=== PATIENT | male | born 1970 | race Caucasian/White ===

== ENCOUNTER 2020-04-10 10:54 | Outpatient (REF) | payer OTHER, SELFPAY | END 2020-04-10 10:55 | disposition home or self-care (01) | LOC: HO.LAB 10:54 | PROVIDERS: Visit Provider Internal Medicine | DX: Z20.828 Contact with and (suspected) exposure to other viral communicable diseases (principal) | CPT/HCPCS: 36415; C9803; U0003 ==

== ENCOUNTER 2020-09-14 17:59 | Emergency (ER) | payer OTHER, SELFPAY ==
[2020-09-14 18:19] VITALS: BP 119/71; PULSE 78; RESP 20; TEMP 37.1; O2SAT 97; BMI 27.2
--- NOTE | 2020-09-14 20:09 | ED.PSYCH ---
HPI - Psych General Chief Complaint: Psychiatric Symptoms Stated Complaint: Crisis Time Seen by Provider: 09/14/20 22:03 Source: patient Mode of arrival: ambulatory Limitations: no limitations History of Present Illness HPI Narrative: Cindy presents to the ED for abdominal pain for SI ideation. Patient states he was recently discharged from detox program and relaspe. Patient states he is suicidal and will hang himself Related Data Home Medications Medication Instructions Recorded Confirmed amlodipine 1 tab PO DAILY 09/14/20 09/14/20 aripiprazole 1 tab PO DAILY 09/14/20 09/14/20 buspirone 1 tab PO BID 09/14/20 09/14/20 chlorthalidone 1 tab PO DAILY 09/14/20 09/14/20 clonidine HCl 1 tab PO BEDTIME PRN 09/14/20 09/14/20 clonidine HCl 1 tab PO BID PRN 09/14/20 09/14/20 dulaglutide [Trulicity] 0.5 ml SUBCUT QWEEK 09/14/20 09/14/20 Allergies Allergy/AdvReac Type Severity Reaction Status Date / Time No Known Allergies Allergy Verified 09/14/20 19:55 Review of Systems Review of Systems: Yes all other systems are reviewed and are negative Constitutional: Constitutional: Reports as per HPI and Reports no additional constitutional complaints Eyes: Eyes: Reports as per HPI and Reports no additional eye complaints ENT: Reports system reviewed and no additional complaints, except as documented and Reports as per HPI Cardiovascular: Cardiovascular: Reports as per HPI and Reports no additional cardiovascular complaints Respiratory: Respiratory: Reports as per HPI and Reports no additional respiratory complaints Gastrointestinal: Gastrointestinal: Reports as per HPI and Reports no additional gastrointestinal complaints Genitourinary: Genitourinary: Reports no additional male genitourinary complaints and Reports as per HPI Musculoskeletal: Musculoskeletal: Reports no additional musculoskeletal complaints and Reports as per HPI Psychiatric: Psychiatric: Reports no additional psychiatric complaints, Reports as per HPI and Reports suicidal ideation [facility] Social History Social History Alcohol intake: never Patient Tobacco Use Status: Current someday Tobacco user Smoked in Last 30 Days: Yes Use of substances other than those prescribed or required for medical reasons: Unknown Substance Use Frequency 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, PATIENT NOT FORTH COMING AT THIS TIME Advance Directives: No Advance Directives Information Provided: Yes Healthcare Proxy: No Guardian: No Physical Exam Vital Signs: Vital Signs: Last Vital Signs Temp 98.0 F 09/14/20 21:55 Pulse 72 09/14/20 21:55 Resp 16 09/15/20 00:00 BP 141/80 H 09/14/20 21:55 Pulse Ox 97 09/14/20 21:55 Body Mass Index 27.2 Const: General: cooperative, healthy appearing, comfortable, no acute distress, well developed, alert and awake Orientation/consciousness: patient oriented x3 HENMT: Head: Yes normal to inspection, Yes No palpable skull fracture present, Yes normocephalic and Yes atraumatic Eyes: General: appearance normal, both eyes and all related structures Neck: Neck: Yes normal visual inspection, Yes full ROM, Yes no lymphadenopathy, Yes no meningeal signs, Yes trachea midline, Yes supple and No tender Chest: Chest palpation & inspection: normal inspection of the chest and normal palpation of entire chest wall Resp: Effort & Inspection: normal respiratory effort and able to speak in complete sentences Cardio: Jugular venous distension: no JVD Heart sounds: S1 normal heart sound present and S2 normal heart sound present GI: Inspection: Yes normal to inspection and No abdominal wall ecchymosis Palpation (GI): Soft to palpation, not firm, nontender, no guarding and not rigid : General: No CVA tenderness and Yes no CVA tenderness Back/Spine/Pelvis: Back: no CVA tenderness, No CVA tenderness and No back tenderness Skin: General skin exam: no rashes or lesions noted and elasticity normal Neuro: General: patient oriented x3, gait normal, no meningeal signs and CN's II-XI intact bilaterally Cranial nerves: Yes CN's II-XII intact bilaterally Extrem: General: Yes normal to inspection and Yes full ROM Psych: Appearance: grossly normal, well kempt and not disheveled Course Course Course Narrative: Patient will have medical evaluation in and be evaluated by I and crisis. Reevaluation(s) Reevaluation #1: CARLOS resolved. Patient seen by care team consulted Kalie who recommend Section 12 inpatient bed search. Time: 01:31 MDM - Psych MDM Narrative Medical decision making narrative: Depression. Lab Data Result diagrams: 09/14/20 20:23 09/15/20 00:21 Labs: Lab Results 09/14/20 09/14/20 09/14/20 Range/Units 19:25 20:23 20:23 WBC 5.9 (4.8-10.8) X10*3/uL RBC 4.14 L (4.60-5.80) X10*6/uL Hgb 12.6 L (14.0-18.0) g/dl Hct 37.1 L (42-52) % MCV 89.6 (80-98) fL MCH 30.4 (27.0-33.0) pg MCHC 34.0 (31.0-36.0) g/dl RDW 11.7 (11.0-16.0) % Plt Count 132 L (160-400) X10*3/uL MPV 10.7 (9.4-12.4) fL Immature Gran % (Auto) 0.2 (0.0-0.4) % Neut % (Auto) 64.5 (45-73) % Lymph % (Auto) 20.5 (20-40) % [place] % (Auto) 12.8 H (2-11) % Eos % (Auto) 1.7 (0-4) % Baso % (Auto) 0.3 (0-2) % Lymph # (Auto) 1.2 (1.2-4.9) X10*3/uL [place] # (Auto) 0.8 (0.1-1.2) X10*3/uL Eos # (Auto) 0.1 (0.0-0.4) X10*3/uL Baso # (Auto) 0.0 (0.0-0.2) X10*3/uL Abs Immat Gran (auto) 0.01 (0.00-0.03) X10*3/uL Absolute Neuts (auto) 3.8 (2.0-8.3) X10*3/uL Absolute Nucleated RBC 0.000 (0.0-0.012) X10*3/uL Nucleated RBC % (auto) 0.0 (0.0-0.2) /100WBC Smear Tech's Comments VERIFIED Sodium 138 (135-145) mmol/L Potassium 3.5 (3.3-5.1) mmol/L Chloride 95 L (96-108) mmol/L Carbon Dioxide 34 H (22-29) mmol/L Anion Gap 13 (12-20) BUN 20 H (9-16) mg/dL Creatinine 1.51 H (0.5-1.4) mg/dL Estim Creat Clear Calc 54.1 Estimated GFR 49 Random Glucose 133 H (60-115) mg/dL Calcium 8.6 (8.4-10.2) mg/dL Total Bilirubin 0.4 (0.0-1.0) mg/dL Direct Bilirubin 0.2 (0.0-0.5) mg/dL AST 30 (5-37) U/L ALT 32 (0-40) U/L Alkaline Phosphatase 66 (39-117) U/L Total Protein 6.4 L (6.5-8.0) g/dL Albumin 3.7 (3.5-5.0) g/dL Urine Opiates Screen POSITIVE H (Not Detect) Ur Barbiturates Screen Not Detected (Not Detect) Ur Phencyclidine Scrn Not Detected (Not Detect) Ur Amphetamines Screen Not Detected (Not Detect) U Benzodiazepines Scrn Not Detected (Not Detect) Urine Cocaine Screen POSITIVE H (Not Detect) U Marijuana (THC) Screen POSITIVE H (Not Detect) Ethyl Alcohol mg/dL 09/14/20 09/15/20 Range/Units 20:23 00:21 WBC (4.8-10.8) X10*3/uL RBC (4.60-5.80) X10*6/uL Hgb (14.0-18.0) g/dl Hct (42-52) % MCV (80-98) fL MCH (27.0-33.0) pg MCHC (31.0-36.0) g/dl RDW (11.0-16.0) % Plt Count (160-400) X10*3/uL MPV (9.4-12.4) fL Immature Gran % (Auto) (0.0-0.4) % Neut % (Auto) (45-73) % Lymph % (Auto) (20-40) % [place] % (Auto) (2-11) % Eos % (Auto) (0-4) % Baso % (Auto) (0-2) % Lymph # (Auto) (1.2-4.9) X10*3/uL [place] # (Auto) (0.1-1.2) X10*3/uL Eos # (Auto) (0.0-0.4) X10*3/uL Baso # (Auto) (0.0-0.2) X10*3/uL Abs Immat Gran (auto) (0.00-0.03) X10*3/uL Absolute Neuts (auto) (2.0-8.3) X10*3/uL Absolute Nucleated RBC (0.0-0.012) X10*3/uL Nucleated RBC % (auto) (0.0-0.2) /100WBC Smear Tech's Comments Sodium 139 (135-145) mmol/L Potassium 3.5 (3.3-5.1) mmol/L Chloride 100 (96-108) mmol/L Carbon Dioxide 29 (22-29) mmol/L Anion Gap 14 (12-20) BUN 20 H (9-16) mg/dL Creatinine 1.40 (0.5-1.4) mg/dL Estim Creat Clear Calc 58.3 Estimated GFR 53 Random Glucose 148 H (60-115) mg/dL Calcium 8.3 L (8.4-10.2) mg/dL Total Bilirubin 0.4 (0.0-1.0) mg/dL Direct Bilirubin (0.0-0.5) mg/dL AST 32 (5-37) U/L ALT 33 (0-40) U/L Alkaline Phosphatase 72 (39-117) U/L Total Protein 6.8 (6.5-8.0) g/dL Albumin 3.9 (3.5-5.0) g/dL Urine Opiates Screen (Not Detect) Ur Barbiturates Screen (Not Detect) Ur Phencyclidine Scrn (Not Detect) Ur Amphetamines Screen (Not Detect) U Benzodiazepines Scrn (Not Detect) Urine Cocaine Screen (Not Detect) U Marijuana (THC) Screen (Not Detect) Ethyl Alcohol < 10 mg/dL Discharge Plan Discharge Clinical Impression: Depression Prescriptions: No Action clonidine HCl 0.1 mg tablet 1 tab PO BID PRN (Reason: Anxiety) RF: 0 clonidine HCl 0.3 mg tablet 1 tab PO BEDTIME PRN (Reason: Sleep) RF: 0 chlorthalidone 25 mg tablet 1 tab PO DAILY RF: 0 amlodipine 5 mg tablet 1 tab PO DAILY RF: 0 buspirone 15 mg tablet 1 tab PO BID RF: 0 aripiprazole 30 mg tablet 1 tab PO DAILY RF: 0 Trulicity 0.75 mg/0.5 mL pen injector 0.5 ml subcut QWEEK RF: 0
[2020-09-14 20:14] LABS: Amphetamine Screen Urine Not Detected (Not Detect); Barbiturates, Urine Not Detected (Not Detect); Benzodiazepines Screen Urine Not Detected (Not Detect); Cannabinoid Screen Urine POSITIVE (Not Detect); Cocaine Screen Urine POSITIVE (Not Detect); Opiate Screen Urine POSITIVE (Not Detect); Phencyclidine Screen Urine Not Detected (Not Detect)
[2020-09-14 20:31] LABS: Basophils Percent Auto 0.3 % (0-2); Hemoglobin 12.6 g/dl (14.0-18.0); MANUAL DIFF FLAG SCAN; Mean Corpuscular Volume 89.6 fL (80-98); PLT CLUMP 1; Red Cell Distribution Width 11.7 % (11.0-16.0); SCAN SMEAR FLAG 1
[2020-09-14 20:32] LABS: Eosinophils Absolute Auto 0.1 X10*3/uL (0.0-0.4); Eosinophils Percent Auto 1.7 % (0-4); Hematocrit 37.1 % (42-52); Imm Gran Abs Auto 0.01 X10*3/uL (0.00-0.03); Imm Gran Pct Auto 0.2 % (0.0-0.4); Lymphocytes Absolute Auto 1.2 X10*3/uL (1.2-4.9); Lymphocytes Percent Auto 20.5 % (20-40); Mean Corpuscular Hemoglobin 30.4 pg (27.0-33.0); Mean Platelet Volume 10.7 fL (9.4-12.4); Monocytes Absolute Auto 0.8 X10*3/uL (0.1-1.2); Monocytes Percent Auto 12.8 % (2-11); Neutrophils Absolute Auto 3.8 X10*3/uL (2.0-8.3); Neutrophils Percent Auto 64.5 % (45-73); Platelet Count 132 X10*3/uL (160-400); Red Blood Count 4.14 X10*6/uL (4.60-5.80); White Blood Count 5.9 X10*3/uL (4.8-10.8)
[2020-09-14 20:52] LABS: SLIDE REVIEW VERIFIED
[2020-09-14 21:11] LABS: Ethanol < 10 mg/dL
[2020-09-14 21:13] LABS: Alanine Aminotransferase 32 U/L (0-40); Albumin Level 3.7 g/dL (3.5-5.0); Alkaline Phosphatase 66 U/L (39-117); Anion Gap 13 (12-20); Aspartate Amino Transferase 30 U/L (5-37); Bilirubin Direct 0.2 mg/dL (0.0-0.5); Bilirubin Total 0.4 mg/dL (0.0-1.0); Blood Urea Nitrogen 20 mg/dL (9-16); Calcium 8.6 mg/dL (8.4-10.2); Carbon Dioxide 34 mmol/L (22-29); Chloride 95 mmol/L (96-108); Creatinine Clr Calc Pharmacy 54.1; Estimated Glomerular Filt Rate 49; Glucose Random 133 mg/dL (60-115); Potassium 3.5 mmol/L (3.3-5.1); Sodium 138 mmol/L (135-145); Total Protein 6.4 g/dL (6.5-8.0)
[2020-09-14 21:55] VITALS: BP 141/80; PULSE 72; RESP 16; TEMP 36.7; O2SAT 97
--- NOTE | 2020-09-14 22:29 | MHC.CARE ---
Evaluation completed by CARE team, plan will be for inpt psychiatric placement. Pt is agreeable for treatment at this time, however due to his level of risk for harm to self he has been placed on a Sect 12a for containment pending psychiatric admission. Pt will presented for possible admission to [facility] inpt units in the morning.
--- NOTE | 2020-09-14 22:33 | PC.NURSE ---
PATIENT SEEN BY CARE ARTIFICIAL INSEMINATOR JOSEPH PLAN FOR INPATIENT BED SEARCH PATIENT IS AGREEABLE TO PLAN OF CARE. IV STARTED AND IV FLUIDS RUNNING PER PROVIDER ORDERS.
[2020-09-14] MEDS: 0.9 % Sodium Chloride 1,000 ML 999 ML IV ×2 (22:37)
[2020-09-15] VITALS: RESP 16
--- NOTE | 2020-09-15 00:40 | PC.NURSE ---
REPEAT LABS SENT, AWAITING RESULTS, PATIENT IS AND INPATIENT BEDSEARCH WITH CARE TEAM
[2020-09-15 01:06] LABS: Alanine Aminotransferase 33 U/L (0-40); Albumin Level 3.9 g/dL (3.5-5.0); Alkaline Phosphatase 72 U/L (39-117); Anion Gap 14 (12-20); Aspartate Amino Transferase 32 U/L (5-37); Bilirubin Total 0.4 mg/dL (0.0-1.0); Blood Urea Nitrogen 20 mg/dL (9-16); Calcium 8.3 mg/dL (8.4-10.2); Carbon Dioxide 29 mmol/L (22-29); Chloride 100 mmol/L (96-108); Creatinine Clr Calc Pharmacy 58.3; Estimated Glomerular Filt Rate 53; Glucose Random 148 mg/dL (60-115); Potassium 3.5 mmol/L (3.3-5.1); Sodium 139 mmol/L (135-145); Total Protein 6.8 g/dL (6.5-8.0)
[2020-09-15 06:00] VITALS: RESP 16
[2020-09-15 08:44] VITALS: BP 152/78; PULSE 72
[2020-09-15] MEDS: amLODIPine Besylate 5 MG TABLET PO (08:44)
[2020-09-15] MEDS: busPIRone HCl 5 MG TABLET 15 MG PO (08:44)
[2020-09-15] MEDS: hydroCHLOROthiazide 25 MG TABLET PO (08:44)
[2020-09-15] MEDS: ARIPiprazole 30 MG TABLET PO (09:01)
[2020-09-15 11:17] LABS: COVID-19 Test Negative (Negative)
[2020-09-15 13:05] VITALS: BP 152/78; PULSE 72
[2020-09-15] MEDS: cloNIDine HCL 0.1 MG TABLET PO (13:05)
[2020-09-15] MEDS: LORazepam 1 MG TABLET 2 MG PO (13:06)
[2020-09-15] MEDS: diphenhydrAMINE HCL 25 MG TABLET PO (13:06)
[2020-09-15] MEDS: Fluticasone Propionate Nasal 16 GM SPRAY 1 SPRAY NOSTRIL-B (13:06)
== END 2020-09-15 14:24 ==
PROVIDERS: Physician Assistant; Emergency Provider Internal Medicine
DX: F32.9 Major depressive disorder, single episode, unspecified (principal); R45.851 Suicidal ideations; N17.9 Acute kidney failure, unspecified; F41.9 Anxiety disorder, unspecified; F11.90 Opioid use, unspecified, uncomplicated; Z79.899 Other long term (current) drug therapy; Z20.822 Contact with and (suspected) exposure to COVID-19
CPT/HCPCS: 36415; 80053; 80076; 80307; 82077; 82248; 85025; 87635; 96360; 99285; Q0163

== ENCOUNTER 2021-05-26 22:53 | Inpatient (IN) | payer OTHER, SELFPAY ==
--- NOTE | ~2021-05-26 | XR_ITS ---
EXAMINATION: XR CHEST CLINICAL INFORMATION: Cocaine COMPARISON: None TECHNIQUE: AP portable view of the chest was obtained. FINDINGS: No significant abnormality is noted involving the heart, lungs, mediastinum, bony thorax or soft tissues. There is degenerative spurring seen throughout the thoracic spine. XR/XR chest 1V IMPRESSION: No acute disease.
[2021-05-26 23:18] VITALS: BP 182/109; PULSE 93; RESP 16; TEMP 36.6; O2SAT 97; BMI 24.1
--- NOTE | 2021-05-26 23:38 | ED.GENADULT ---
HPI - General Adult General Chief complaint: General Medical Stated complaint: HYPERTENSION Time Seen by Provider: 05/26/21 23:38 Source: patient Mode of arrival: EMS Limitations: no limitations History of Present Illness HPI narrative: 51-year-old male who presents emergency department for evaluation of elevated blood pressure and opiate withdrawal. Patient told me that he was at [facility]) on the psychiatric service for being suicidal. He states that they were not treating his opiate withdrawal. He states that he uses 5 bags of intranasal heroin per day (30 bags per week). States he last used 3 days prior. He states he feels like he is withdrawing. He states that body hurts, he feels weak, he has chills, he has diarrhea.According to our nurse's note, patient was sent from [facility] detox with high blood pressure. Patient was treated with clonidine and hydrochlorothiazide. The patient states that in the past, when he has been in detox he has been treated with tapering doses of methadone and this has helped him with his symptoms and his high blood pressure. Patient does have essential hypertension and takes lisinopril 20 mg daily but states he has not taken this in several months. He denies headache, neck pain, chest pain, shortness of breath, dyspnea on exertion, numbness or weakness. Related Data Home Medications Medication Instructions Recorded Confirmed Lactobacillus acidophilus 1 tab PO DAILY 05/27/21 05/27/21 atorvastatin 10 mg tablet 10 mg PO BEDTIME 05/27/21 05/27/21 dulaglutide 1.5 mg/0.5 mL 1.5 mg SUBCUT QWEEK 05/27/21 05/27/21 subcutaneous pen injector (Trulicity) empagliflozin 10 mg tablet 10 mg PO DAILY 05/27/21 05/27/21 (Jardiance) metformin 1,000 mg tablet 1,000 mg PO BID@0900,1700 05/27/21 05/27/21 mirtazapine 15 mg tablet 15 mg PO BEDTIME 05/27/21 05/27/21 oxcarbazepine 300 mg tablet 300 mg PO BID@0900,1700 05/27/21 05/27/21 Previous Rx's Medication Instructions Recorded amlodipine 5 mg tablet 5 mg PO DAILY #30 tab 05/28/21 Allergies Allergy/AdvReac Type Severity Reaction Status Date / Time No Known Allergies Allergy Verified 09/14/20 19:55 Review of Systems Review of Systems: Yes all other systems are reviewed and are negative [facility] Past Medical History [facility] Narrative: Past medical history: Hypertension, diabetes mellitus. Opiate use disorder. Social history: Right elbow fracture with surgical repair. Social history: The patient denies tobacco use. He denies alcohol use. He states the uses 5 bags of heroin intranasally daily and uses 30 bags per week. He states that he does smoke marijuana and occasionally uses cocaine. Social History Social History Household Members: None Housing: Other Housing Other:: states homeless Do you presently have visiting nurse or other home services: No Unable to assess alcohol history related to: Unknown Alcohol intake: never Patient Tobacco Use Status: Tobacco use Unknown Substance Use Type: Heroin and Marijuana service: No Current occupational status: unemployed Physical Exam ED Vital Signs: Vital Signs - 24 hr 05/26/21 23:18 05/27/21 00:28 Temperature 98 F Pulse Rate 93 90 Respiratory Rate 16 16 Blood Pressure 182/109 H 208/141 H Pulse Oximetry 97 98 BMI result Body Mass Index 24.1 Const Other: Awake, alert, male patient, does not appear to be in distress, answers all questions appropriately [facility] Head: Yes normal to inspection, Yes normocephalic and Yes atraumatic Ears: external ears normal General nose exam: Normal external nose present Face and sinus: Yes normal facial exam Mouth: Normal oral and palatal mucosa present Throat: Yes posterior oropharynx normal Eyes General: appearance normal, both eyes and all related structures Pupils: Equal, round and reactive pupils present Neck Neck: Yes normal visual inspection, Yes no lymphadenopathy, Yes trachea midline and Yes supple Chest Chest palpation & inspection: normal inspection of the chest and normal palpation of entire chest wall Resp Effort & Inspection: normal respiratory effort and able to speak in complete sentences Auscultation: clear to auscultation bilaterally Cardio Rate: regular rate Rhythm: regular rhythm Heart sounds: S1 normal heart sound present, S2 normal heart sound present and no murmurs GI Inspection: Yes normal to inspection Palpation (GI): Soft to palpation, nontender and no guarding Auscultation: normal bowel sounds General: Yes no CVA tenderness Back/Spine/Pelvis Back: no CVA tenderness Skin General skin exam: no rashes or lesions noted Neuro Cranial nerves: Yes CN's II-XII intact bilaterally and Yes Equal, round and reactive pupils present Cognition (Neuro): normal cognition Motor exam (neuro): 5/5 motor strength present throughout Extrem General: Yes normal to inspection Psych Appearance: grossly normal Speech and movement: Normal speech and movement present Affect: normal affect Attitude: cooperative Thought process: Normal thought process present Thought content: Normal thought content present Course Course Course Narrative: 51-year-old male with a history of opiate use disorder, diabetes mellitus and essential hypertension who was being treated at [facility] on the psychiatric service for suicidal ideation who was sent to emergency department for evaluation of hypertension. Patient states that he does have hypertension but has been noncompliant with his lisinopril. He states that he is currently withdrawing from opiates and in the past this is caused a bad high blood pressures. He denied headache, chest pain, shortness of breath or dyspnea on exertion. He has had no abdominal pain but he is complaining of joint and muscle pain, nausea, diarrhea and he feels as if he is withdrawing from opiates. Patient's vital signs did reveal significantly elevated blood pressures as high as 217/131. His exam was otherwise unremarkable. I did order laboratory evaluation to include CBC, CMP, lipase, troponin COVID-19, urine drug screen, alcohol level, EKG. The patient will be treated with methadone 20 mg orally, Toradol 15 mg IV, clonidine 0.3 mg orally. 0013: 12 EKG revealed normal sinus rhythm with inverted T-wave in lead 3 and Q-waves V1 V2 otherwise no acute findings, old EKG for comparison. 0100: Patient's laboratory evaluation did reveal an elevated troponin at 191 at 00:22, repeat will be obtained at 03:20 hours. He had and elevated AST and ALT of 47 and 41, ETOH was below detectable limits, COVID-19 was negative. 05/29/2021: 0618: Due to [employer] down time, I was unable to complete documentation at the time service. The patient continued to be hypertensive but asymptomatic. He had systolic blood pressures in the 240 range with diastolics in the 120-140 range. He had no improvement with methadone and clonidine orally. He was given labetalol 20 mg IV. Given the patient's persistent hypertension did discuss the patient's presentation with the covering radio script writer, Dr. Schumacher and the patient will be admitted to the intensive care unit for evaluation and further treatment of opiate withdrawal and hypertension. Medical Decision Making Lab Data Result diagrams: 05/28/21 05:35 05/28/21 05:35 Labs: Lab Results 05/27/21 05/27/21 05/27/21 Range/Units 00:22 00:22 00:22 WBC 11.4 H (4.8-10.8) X10*3/uL RBC 5.90 H (4.60-5.80) X10*6/uL Hgb 17.9 (14.0-18.0) g/dl Hct 51.1 (42.0-52.0) % MCV 86.6 (80.0-98.0) fL MCH 30.3 (27.0-33.0) pg MCHC 35.0 (31.0-36.0) g/dl RDW 11.7 (11.0-16.0) % Plt Count 178 (160-400) X10*3/uL MPV 10.8 (9.4-12.4) fL Immature Gran % (Auto) 0.3 (0.0-0.4) % Neut % (Auto) 80.5 H (45-73) % Lymph % (Auto) 12.9 L (20-40) % [place] % (Auto) 6.1 (2-11) % Eos % (Auto) 0.1 (0-4) % Baso % (Auto) 0.1 (0-2) % Lymph # (Auto) 1.5 (1.2-4.9) X10*3/uL [place] # (Auto) 0.7 (0.1-1.2) X10*3/uL Eos # (Auto) 0.0 (0.0-0.4) X10*3/uL Baso # (Auto) 0.0 (0.0-0.2) X10*3/uL Abs Immat Gran (auto) 0.03 (0.00-0.03) X10*3/uL Absolute Neuts (auto) 9.2 H (2.0-8.3) x10*3/uL Absolute Nucleated RBC 0.000 (0.0-0.012) X10*3/uL Nucleated RBC % (auto) 0.0 (0.0-0.2) /100WBC Sodium 139 (135-145) mmol/L Potassium 3.9 (3.3-5.1) mmol/L Chloride 95 L (96-108) mmol/L Carbon Dioxide 28 (22-29) mmol/L Anion Gap 20 (12-20) BUN 16 (9-16) mg/dL Creatinine 1.35 (0.5-1.4) mg/dL Estim Creat Clear Calc 59.8 Estimated GFR 55 Random Glucose 171 H (60-115) mg/dL Calcium 10.6 H D (8.4-10.2) mg/dL Total Bilirubin 1.0 (0.0-1.0) mg/dL AST 47 H D (5-37) U/L ALT 41 H (0-40) U/L Alkaline Phosphatase 84 (39-117) U/L Total Creatine Kinase 349 H (38-174) U/L Troponin I High Sens 191.6 H* (<3.5-35.0) ng/L Total Protein 9.2 H D (6.5-8.0) g/dL Albumin 4.9 D (3.5-5.0) g/dL Lipase 9 (8-78) U/L TSH 0.31 L (0.32-4.0) uIU/mL Free T4 1.04 (0.71-1.85) ng/dL Urine Color Urine Appearance Urine pH (5.0-8.0) Ur Specific [place] (1.005-1.025) Urine Protein (NEG-TRACE) MG/DL Urine Glucose (UA) (NEG) MG/DL Urine Ketones (NEG) MG/DL Urine Blood (NEG) Urine Nitrite (NEG) Ur Leukocyte Esterase (NEG) Urine RBC (0) /HPF Urine WBC (0-4) /HPF Ur Squamous Epith Cells /LPF Urine Bacteria /LPF Urine Opiates Screen (Not Detect) Urine Fentanyl Screen (Not Detect) Ur Barbiturates Screen (Not Detect) Ur Phencyclidine Scrn (Not Detect) Ur Amphetamines Screen (Not Detect) U Benzodiazepines Scrn (Not Detect) Urine Cocaine Screen (Not Detect) U Marijuana (THC) Screen (Not Detect) Ethyl Alcohol mg/dL COVID-19 (WANDA) (Negative) COVID-19 Clin Com 05/27/21 05/27/21 05/27/21 Range/Units 00:22 00:22 01:27 WBC (4.8-10.8) X10*3/uL RBC (4.60-5.80) X10*6/uL Hgb (14.0-18.0) g/dl Hct (42.0-52.0) % MCV (80.0-98.0) fL MCH (27.0-33.0) pg MCHC (31.0-36.0) g/dl RDW (11.0-16.0) % Plt Count (160-400) X10*3/uL MPV (9.4-12.4) fL Immature Gran % (Auto) (0.0-0.4) % Neut % (Auto) (45-73) % Lymph % (Auto) (20-40) % [place] % (Auto) (2-11) % Eos % (Auto) (0-4) % Baso % (Auto) (0-2) % Lymph # (Auto) (1.2-4.9) X10*3/uL [place] # (Auto) (0.1-1.2) X10*3/uL Eos # (Auto) (0.0-0.4) X10*3/uL Baso # (Auto) (0.0-0.2) X10*3/uL Abs Immat Gran (auto) (0.00-0.03) X10*3/uL Absolute Neuts (auto) (2.0-8.3) x10*3/uL Absolute Nucleated RBC (0.0-0.012) X10*3/uL Nucleated RBC % (auto) (0.0-0.2) /100WBC Sodium (135-145) mmol/L Potassium (3.3-5.1) mmol/L Chloride (96-108) mmol/L Carbon Dioxide (22-29) mmol/L Anion Gap (12-20) BUN (9-16) mg/dL Creatinine (0.5-1.4) mg/dL Estim Creat Clear Calc Estimated GFR Random Glucose (60-115) mg/dL Calcium (8.4-10.2) mg/dL Total Bilirubin (0.0-1.0) mg/dL AST (5-37) U/L ALT (0-40) U/L Alkaline Phosphatase (39-117) U/L Total Creatine Kinase (38-174) U/L Troponin I High Sens (<3.5-35.0) ng/L Total Protein (6.5-8.0) g/dL Albumin (3.5-5.0) g/dL Lipase (8-78) U/L TSH (0.32-4.0) uIU/mL Free T4 (0.71-1.85) ng/dL Urine Color YELLOW Urine Appearance CLEAR Urine pH 6.0 (5.0-8.0) Ur Specific [place] 1.015 (1.005-1.025) Urine Protein TRACE (NEG-TRACE) MG/DL Urine Glucose (UA) >=1000 H (NEG) MG/DL Urine Ketones 15 (NEG) MG/DL Urine Blood NEG (NEG) Urine Nitrite NEG (NEG) Ur Leukocyte Esterase NEG (NEG) Urine RBC 1-4 (0) /HPF Urine WBC 0-2 (0-4) /HPF Ur Squamous Epith Cells 1+ /LPF Urine Bacteria NONE /LPF Urine Opiates Screen (Not Detect) Urine Fentanyl Screen (Not Detect) Ur Barbiturates Screen (Not Detect) Ur Phencyclidine Scrn (Not Detect) Ur Amphetamines Screen (Not Detect) U Benzodiazepines Scrn (Not Detect) Urine Cocaine Screen (Not Detect) U Marijuana (THC) Screen (Not Detect) Ethyl Alcohol < 10 mg/dL COVID-19 (WANDA) Negative (Negative) COVID-19 Clin Com See Note 05/27/21 Range/Units 01:27 WBC (4.8-10.8) X10*3/uL RBC (4.60-5.80) X10*6/uL Hgb (14.0-18.0) g/dl Hct (42.0-52.0) % MCV (80.0-98.0) fL MCH (27.0-33.0) pg MCHC (31.0-36.0) g/dl RDW (11.0-16.0) % Plt Count (160-400) X10*3/uL MPV (9.4-12.4) fL Immature Gran % (Auto) (0.0-0.4) % Neut % (Auto) (45-73) % Lymph % (Auto) (20-40) % [place] % (Auto) (2-11) % Eos % (Auto) (0-4) % Baso % (Auto) (0-2) % Lymph # (Auto) (1.2-4.9) X10*3/uL [place] # (Auto) (0.1-1.2) X10*3/uL Eos # (Auto) (0.0-0.4) X10*3/uL Baso # (Auto) (0.0-0.2) X10*3/uL Abs Immat Gran (auto) (0.00-0.03) X10*3/uL Absolute Neuts (auto) (2.0-8.3) x10*3/uL Absolute Nucleated RBC (0.0-0.012) X10*3/uL Nucleated RBC % (auto) (0.0-0.2) /100WBC Sodium (135-145) mmol/L Potassium (3.3-5.1) mmol/L Chloride (96-108) mmol/L Carbon Dioxide (22-29) mmol/L Anion Gap (12-20) BUN (9-16) mg/dL Creatinine (0.5-1.4) mg/dL Estim Creat Clear Calc Estimated GFR Random Glucose (60-115) mg/dL Calcium (8.4-10.2) mg/dL Total Bilirubin (0.0-1.0) mg/dL AST (5-37) U/L ALT (0-40) U/L Alkaline Phosphatase (39-117) U/L Total Creatine Kinase (38-174) U/L Troponin I High Sens (<3.5-35.0) ng/L Total Protein (6.5-8.0) g/dL Albumin (3.5-5.0) g/dL Lipase (8-78) U/L TSH (0.32-4.0) uIU/mL Free T4 (0.71-1.85) ng/dL Urine Color Urine Appearance Urine pH (5.0-8.0) Ur Specific [place] (1.005-1.025) Urine Protein (NEG-TRACE) MG/DL Urine Glucose (UA) (NEG) MG/DL Urine Ketones (NEG) MG/DL Urine Blood (NEG) Urine Nitrite (NEG) Ur Leukocyte Esterase (NEG) Urine RBC (0) /HPF Urine WBC (0-4) /HPF Ur Squamous Epith Cells /LPF Urine Bacteria /LPF Urine Opiates Screen Not Detected (Not Detect) Urine Fentanyl Screen POSITIVE H (Not Detect) Ur Barbiturates Screen Not Detected (Not Detect) Ur Phencyclidine Scrn Not Detected (Not Detect) Ur Amphetamines Screen Not Detected (Not Detect) U Benzodiazepines Scrn POSITIVE H (Not Detect) Urine Cocaine Screen POSITIVE H (Not Detect) U Marijuana (THC) Screen POSITIVE H (Not Detect) Ethyl Alcohol mg/dL COVID-19 (WANDA) (Negative) COVID-19 Clin Com ECG Data Attestation: I personally reviewed and interpreted this ECG as follows: Interpretation: 0012: Normal sinus rhythm with a rate of 88, normal CA interval, QRS duration QTC interval, inverted T-wave in lead 3 Q-waves in V1 and V2, no ST segment elevation, no ST segment depression, no PACs, no PVCs, no old EKG for comparison Critical Care Time Critical Care Time Critical Care Time: Yes Total Critical Care Time: 55 Attestation: Critical Care: The patient was critically ill with a high probability of imminent or life threatening deterioration. I spent greater than 30 minutes of discontinuous time evaluating the patient,delivering critical care at the bedside, discussing and evaluating pertinent data with consultants. Critical care time does not include time spent performing separately billable procedures or teaching. Total time spent performing critical care was 45 minutes. Discharge Plan Discharge Clinical Impression: Opioid withdrawal, Asymptomatic hypertensive urgency Patient Disposition: Admitted As Inpatient Discharge Date/Time: 05/27/21 03:00
--- NOTE | 2021-05-26 23:57 | ECG_ITS ---
Test Reason : med clearance Blood Pressure : / mmHG Vent. Rate : 088 BPM Atrial Rate : 088 BPM P-R Int : 142 ms QRS Dur : 074 ms QT Int : 356 ms P-R-T Axes : 027 013 -04 degrees QTc Int : 430 ms Normal sinus rhythm Septal infarct , age undetermined Abnormal ECG No previous ECGs available Referred By: Nakul Wang Electronically Signed By:CONY STAFFORD
[2021-05-27] VITALS (13 sets, daily range): BP systolic 116–208; BP diastolic 86–141; PULSE 82–98; RESP 14–22; TEMP 36.7–37.2; O2SAT 97–100; BMI 24.5
--- NOTE | 2021-05-27 | ECG_ITS ---
Test Reason : cp Blood Pressure : / mmHG Vent. Rate : 086 BPM Atrial Rate : 086 BPM P-R Int : 148 ms QRS Dur : 070 ms QT Int : 372 ms P-R-T Axes : 070 041 010 degrees QTc Int : 445 ms Normal sinus rhythm Septal infarct (cited on or before 27-MAY-2021) Abnormal ECG When compared with ECG of 27-MAY-2021 00:01, No significant change was found Referred By: Angela Schumacher Electronically Signed By:CONY STAFFORD
[2021-05-27 00:28] LABS: Basophils Percent Auto 0.1 % (0-2); Eosinophils Percent Auto 0.1 % (0-4); Hematocrit 51.1 % (42.0-52.0); Hemoglobin 17.9 g/dl (14.0-18.0); Imm Gran Abs Auto 0.03 X10*3/uL (0.00-0.03); Imm Gran Pct Auto 0.3 % (0.0-0.4); Lymphocytes Absolute Auto 1.5 X10*3/uL (1.2-4.9); Lymphocytes Percent Auto 12.9 % (20-40); MANUAL DIFF FLAG NO; Mean Corpuscular Hemoglobin 30.3 pg (27.0-33.0); Mean Corpuscular Volume 86.6 fL (80.0-98.0); Mean Platelet Volume 10.8 fL (9.4-12.4); Monocytes Absolute Auto 0.7 X10*3/uL (0.1-1.2); Monocytes Percent Auto 6.1 % (2-11); Neutrophils Absolute Auto 9.2 x10*3/uL (2.0-8.3); Neutrophils Percent Auto 80.5 % (45-73); Platelet Count 178 X10*3/uL (160-400); Red Cell Distribution Width 11.7 % (11.0-16.0); White Blood Count 11.4 X10*3/uL (4.8-10.8)
[2021-05-27] MEDS: Ketorolac Tromethamine 15 MG/ML VIAL IVPUSH (00:35)
[2021-05-27] MEDS: cloNIDine HCL 0.1 MG TABLET 0.3 MG PO ×2 (00:35→20:56)
[2021-05-27] MEDS: methADONE HCl 20 MG/2 ML ORAL.CONC PO (00:36)
[2021-05-27 00:43] LABS: Ethanol < 10 mg/dL
[2021-05-27 00:45] LABS: COVID-19 Test Negative (Negative)
[2021-05-27 00:48] LABS: Alanine Aminotransferase 41 U/L (0-40); Albumin Level 4.9 g/dL (3.5-5.0); Alkaline Phosphatase 84 U/L (39-117); Anion Gap 20 (12-20); Aspartate Amino Transferase 47 U/L (5-37); Blood Urea Nitrogen 16 mg/dL (9-16); Calcium 10.6 mg/dL (8.4-10.2); Carbon Dioxide 28 mmol/L (22-29); Chloride 95 mmol/L (96-108); Creatinine Clr Calc Pharmacy 59.8; Estimated Glomerular Filt Rate 55; Glucose Random 171 mg/dL (60-115); Lipase 9 U/L (8-78); Potassium 3.9 mmol/L (3.3-5.1); Sodium 139 mmol/L (135-145); Total Protein 9.2 g/dL (6.5-8.0)
[2021-05-27 00:52] LABS: Troponin-I High Sensitivity 191.6 ng/L (<3.5-35.0)
[2021-05-27] MEDS: hydrALAZINE HCl 20 MG/ML VIAL 10 MG IM (03:20)
[2021-05-27 05:25] LABS: Appearance Urine CLEAR; Color Urine YELLOW; Glucose Urine UA >=1000 MG/DL (NEG); Leukocyte Esterase Urine NEG (NEG); Nitrite Urine NEG (NEG); Specific Gravity - Urine 1.015 (1.005-1.025); Squamous Epithelial Cell Urine 1+ /LPF; Urine Blood NEG (NEG); Urine Ketones 15 MG/DL (NEG); Urine Protein TRACE MG/DL (NEG-TRACE); WBC Urine 0-2 /HPF (0-4)
[2021-05-27 05:44] LABS: TSH reflex Free T4 0.31 uIU/mL (0.32-4.0)
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
[2021-05-27 05:58] LABS: Troponin-I High Sensitivity 210.5 ng/L (<3.5-35.0)
[2021-05-27 06:10] LABS: Amphetamine Screen Urine Not Detected (Not Detect); Barbiturates, Urine Not Detected (Not Detect); Benzodiazepines Screen Urine POSITIVE (Not Detect); Cannabinoid Screen Urine POSITIVE (Not Detect); Cocaine Screen Urine POSITIVE (Not Detect); Fentanyl, urine POSITIVE (Not Detect); Opiate Screen Urine Not Detected (Not Detect); Phencyclidine Screen Urine Not Detected (Not Detect)
[2021-05-27 06:23] LABS: Free T4 (Free Thyroxine) 1.04 ng/dL (0.71-1.85)
--- NOTE | 2021-05-27 06:26 | PC.NURSE ---
ADMIT TO 259-1 APPROX 3AM...RESTFUL..ALERT..ORIENTED X3..CALM/CO-OPERATIVE..RESPIRATIONS EASY..SAO2 99% ROOM AIR...NSR..NO ECTOPY...DENIES/OFFERS NO COMPLAINTS...BP REMAINED ELEVATED DESPITE RX IN ER DEPT...186/118 AT ADMIT..ASYMPTOMATIC...ICU PA PRESENT...HYDRALAZINE 10MG IV X1 GIVEN...GOAL PER PA SBP <160-170....FOLLOW UP BP'S= SBP 130'S-140'S DBP 90'S...RESTFUL..REPEAT TROPONIN 210.5...COMPUTER DOWNTIME IN PROGRESS...VERBALLY REPORTED TO PA..NO NEW ORDERS...1:1 SITTER AT BEDSIDE FOR PAST SI STATUS PER ER REPORT/RECORDS..BRAND DEVELOPMENT MANAGER AWARE...
[2021-05-27 07:35] LABS: Alanine Aminotransferase 31 U/L (0-40); Alkaline Phosphatase 67 U/L (39-117); Anion Gap 16 (12-20); Aspartate Amino Transferase 31 U/L (5-37); Bilirubin Total 0.8 mg/dL (0.0-1.0); Blood Urea Nitrogen 20 mg/dL (9-16); Calcium 9.8 mg/dL (8.4-10.2); Carbon Dioxide 27 mmol/L (22-29); Chloride 98 mmol/L (96-108); Creatinine Clr Calc Pharmacy 56.4; Estimated Glomerular Filt Rate 52; Glucose Random 138 mg/dL (60-115); Potassium 3.7 mmol/L (3.3-5.1); Sodium 137 mmol/L (135-145); Total Protein 7.5 g/dL (6.5-8.0)
[2021-05-27 07:42] LABS: Troponin-I High Sensitivity 160.8 ng/L (<3.5-35.0)
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
[2021-05-27] MEDS: cloNIDine 0.2 MG PATCH.TDWK TRANSDERMA (08:48)
--- NOTE | 2021-05-27 09:14 | MHC.CARE ---
Please contact the CARE Team when patient is medically stable for discharge.
--- NOTE | 2021-05-27 10:38 | PHA.MEDREC ---
Pharmacy Consult ? Medication Reconciliation Pharmacy has completed the medication reconciliation. Patient came from [facility]. Medication list with medications administer yesterday were sent with patient. Maryann YarbroughD
[2021-05-27 10:41] LABS: Glucose, Whole Blood 161 mg/dL (60-115)
--- NOTE | 2021-05-27 12:36 | PM.PSYCN ---
History of Present Illness Date of Service: 05/27/21 Chief Complaint: Hypertensive Urgency Reason for Consult: substance use disorder (drug rehab), and suicidal ideation Requesting physician: Angela cShumacher Discussed with referring provider: Yes Sources of Information: patient interviewed, chart reviewed and crisis/core team assessment reviewed HPI Narrative: Patient is a 51-year-old male with a PMH of bipolar disorder PTSD, polysubstance use disorder, hypertension, DM, hyperlipidemia, chronic kidney disease. He originally presented outside of [facility] on 05/25/2021, but at some point had threatened suicide by holding a knife to his throat. He was then transferred to [facility] level of care. While at inpatient psychiatric facility, he had elevated blood pressure of 217/131, as well as opioid withdrawals. Tox screen was also positive for benzodiazepines, cocaine, marijuana, fentanyl. He was brought to the emergency department for further care and treatment. EKG today shows QTC of 445. Upon approach, patient appeared to be resting comfortably in ICU bed. No evidence of any type of withdrawals, NAD. Patient had received dose of methadone 20 mg at 00:36 this a.m.. Sitter was present outside of room. He was alert and oriented when I met with him this morning, although somewhat guarded at times. He reports that he is not experiencing any type of withdrawals at this time. When this about suicidal ideation, he states ?I had a situation with my , and I started using again, a week ago, after a year of sobriety . He then explained that he went to [facility], and that he made a suicidal gesture because he wanted to ensure that he got into the detox quickly. He states that they then sent him to a psychiatric unit, ?but they lied to me ?. When asked what he meant, he stated he told them that he was experiencing withdrawals after using a half pack of heroin over the past week, and that he would need to be detoxed on the psychiatric unit. He stated that his withdrawal symptoms were not being adequately addressed, the us the high blood pressure, and the transfer here to this facility. He states that he was not suicidal when he presented to [facility] several days ago, and that he is not suicidal in any way today. He reports that he has no thoughts of harm to self or others at this time, and that he feels safe. He reports that he does have a history of an inpatient psychiatric stay, and as per chart review he was evaluated by care team here in 2020, and was hospitalized on a [facility] at [facility], for suicidal ideation. He reports that he has a psychiatric provider at [facility] and that he ran out of his medications after missing an appointment on April 30. A review of home medications shows that he has mirtazapine 15 mg at bedtime, with last fill on 04/08/2021. He also has BuSpar 15 mg b.i.d., also filled on 04/08/2021. He has a remote history Abilify, but not current script. He also has admissions to residential treatment for substance use disorder, including detox, as well as [facility] recovery home in [place]. He reports that he has received Vivitrol in the past for his opioid use disorder, with success. He is requesting that he be given a methadone taper while here, with a referral to [facility] clinic for Vivitrol going forward. Past Psychiatric History: [facility], 07/21/2020. [facility] 1 time. Detox several times, other residential program 1 time. Medical Evaluation Reviewed: Yes Personal & Social History: Recently from . Has outpatient providers and therapist at [facility], [facility]. Review of Systems Review of Systems A full review of systems was completed and was negative with the exception of pertinent positives noted in history of the presenting illness (HPI). Yes all other systems are reviewed and are negative Constitutional: Reports no additional constitutional complaints PMFSH Family History: unknown Social History: recently (within past week) Substance History: History of substance use treatment. Recent relapse, tox screen positive for benzodiazepines, cocaine, marijuana, fentanyl on 05/27/21. Trauma History: Unknown Diagnostics Vital Signs (24Hr): Vital Signs - 24 hr 05/26/21 23:18 05/27/21 00:28 05/27/21 03:00 Temperature 98 F 99.0 F Pulse Rate 93 90 84 Respiratory Rate 16 16 22 H Blood Pressure 182/109 H 208/141 H 186/118 H Pulse Oximetry 97 98 99 05/27/21 03:35 05/27/21 04:00 05/27/21 05:56 Temperature Pulse Rate 94 98 96 Respiratory Rate 20 20 20 Blood Pressure 141/98 H 143/97 H 137/97 H Pulse Oximetry 99 99 99 05/27/21 06:00 05/27/21 07:00 05/27/21 08:00 Temperature 98.3 F Pulse Rate 95 89 96 Respiratory Rate 20 18 18 Blood Pressure 151/97 H 131/93 H 129/93 H Pulse Oximetry 98 98 99 05/27/21 09:00 05/27/21 10:00 Temperature Pulse Rate 89 84 Respiratory Rate 18 16 Blood Pressure 129/94 H 126/98 H Pulse Oximetry 99 100 BMI result Body Mass Index 24.5 Labs Results: 05/27/21 00:22 05/27/21 07:11 Labs: Laboratory Results - last 48 hr 05/27/21 05/27/21 05/27/21 00:22 00:22 00:22 WBC 11.4 H RBC 5.90 H Hgb 17.9 Hct 51.1 MCV 86.6 MCH 30.3 MCHC 35.0 RDW 11.7 Plt Count 178 MPV 10.8 Immature Gran % (Auto) 0.3 Neut % (Auto) 80.5 H Lymph % (Auto) 12.9 L Russell % (Auto) 6.1 Eos % (Auto) 0.1 Baso % (Auto) 0.1 Lymph # (Auto) 1.5 Russell # (Auto) 0.7 Eos # (Auto) 0.0 Baso # (Auto) 0.0 Abs Immat Gran (auto) 0.03 Absolute Neuts (auto) 9.2 H Absolute Nucleated RBC 0.000 Nucleated RBC % (auto) 0.0 Sodium 139 Potassium 3.9 Chloride 95 L Carbon Dioxide 28 Anion Gap 20 BUN 16 Creatinine 1.35 Estim Creat Clear Calc 59.8 Estimated GFR 55 POC Glucose Random Glucose 171 H Calcium 10.6 H D Total Bilirubin 1.0 AST 47 H D ALT 41 H Alkaline Phosphatase 84 Total Creatine Kinase 349 H Troponin I High Sens 191.6 H* Total Protein 9.2 H D Albumin 4.9 D Lipase 9 TSH 0.31 L Free T4 1.04 Urine Color Urine Appearance Urine pH Ur Specific [place] Urine Protein Urine Glucose (UA) Urine Ketones Urine Blood Urine Nitrite Ur Leukocyte Esterase Urine RBC Urine WBC Ur Squamous Epith Cells Urine Bacteria Urine Opiates Screen Urine Fentanyl Screen Ur Barbiturates Screen Ur Phencyclidine Scrn Ur Amphetamines Screen U Benzodiazepines Scrn Urine Cocaine Screen U Marijuana (THC) Screen Ethyl Alcohol COVID-19 ([facility]ANDA) COVID-19 Clin Com 05/27/21 05/27/21 05/27/21 00:22 00:22 01:27 WBC RBC Hgb Hct MCV MCH MCHC RDW Plt Count MPV Immature Gran % (Auto) Neut % (Auto) Lymph % (Auto) Russell % (Auto) Eos % (Auto) Baso % (Auto) Lymph # (Auto) Russell # (Auto) Eos # (Auto) Baso # (Auto) Abs Immat Gran (auto) Absolute Neuts (auto) Absolute Nucleated RBC Nucleated RBC % (auto) Sodium Potassium Chloride Carbon Dioxide Anion Gap BUN Creatinine Estim Creat Clear Calc Estimated GFR POC Glucose Random Glucose Calcium Total Bilirubin AST ALT Alkaline Phosphatase Total Creatine Kinase Troponin I High Sens Total Protein Albumin Lipase TSH Free T4 Urine Color YELLOW Urine Appearance CLEAR Urine pH 6.0 Ur Specific [place] 1.015 Urine Protein TRACE Urine Glucose (UA) >=1000 H Urine Ketones 15 Urine Blood NEG Urine Nitrite NEG Ur Leukocyte Esterase NEG Urine RBC 1-4 Urine WBC 0-2 Ur Squamous Epith Cells 1+ Urine Bacteria NONE Urine Opiates Screen Urine Fentanyl Screen Ur Barbiturates Screen Ur Phencyclidine Scrn Ur Amphetamines Screen U Benzodiazepines Scrn Urine Cocaine Screen U Marijuana (THC) Screen Ethyl Alcohol < 10 COVID-19 (WANDA) Negative COVID-19 Meshify Com See Note 05/27/21 05/27/21 05/27/21 01:27 03:35 07:11 WBC RBC Hgb Hct MCV MCH MCHC RDW Plt Count MPV Immature Gran % (Auto) Neut % (Auto) Lymph % (Auto) Russell % (Auto) Eos % (Auto) Baso % (Auto) Lymph # (Auto) Russell # (Auto) Eos # (Auto) Baso # (Auto) Abs Immat Gran (auto) Absolute Neuts (auto) Absolute Nucleated RBC Nucleated RBC % (auto) Sodium 137 Potassium 3.7 Chloride 98 Carbon Dioxide 27 Anion Gap 16 BUN 20 H Creatinine 1.43 H Estim Creat Clear Calc 56.4 Estimated GFR 52 POC Glucose Random Glucose 138 H Calcium 9.8 D Total Bilirubin 0.8 AST 31 ALT 31 Alkaline Phosphatase 67 D Total Creatine Kinase 208 H D Troponin I High Sens 210.5 H* Total Protein 7.5 Albumin 4.0 Lipase TSH Free T4 Urine Color Urine Appearance Urine pH Ur Specific [place] Urine Protein Urine Glucose (UA) Urine Ketones Urine Blood Urine Nitrite Ur Leukocyte Esterase Urine RBC Urine WBC Ur Squamous Epith Cells Urine Bacteria Urine Opiates Screen Not Detected Urine Fentanyl Screen POSITIVE H Ur Barbiturates Screen Not Detected Ur Phencyclidine Scrn Not Detected Ur Amphetamines Screen Not Detected U Benzodiazepines Scrn POSITIVE H Urine Cocaine Screen POSITIVE H U Marijuana (THC) Screen POSITIVE H Ethyl Alcohol COVID-19 (WANDA) COVID-19 Clin Com 05/27/21 05/27/21 07:11 10:38 WBC RBC Hgb Hct MCV MCH MCHC RDW Plt Count MPV Immature Gran % (Auto) Neut % (Auto) Lymph % (Auto) Russell % (Auto) Eos % (Auto) Baso % (Auto) Lymph # (Auto) Russell # (Auto) Eos # (Auto) Baso # (Auto) Abs Immat Gran (auto) Absolute Neuts (auto) Absolute Nucleated RBC Nucleated RBC % (auto) Sodium Potassium Chloride Carbon Dioxide Anion Gap BUN Creatinine Estim Creat Clear Calc Estimated GFR POC Glucose 161 H Random Glucose Calcium Total Bilirubin AST ALT Alkaline Phosphatase Total Creatine Kinase Troponin I High Sens 160.8 H* Total Protein Albumin Lipase TSH Free T4 Urine Color Urine Appearance Urine pH Ur Specific [place] Urine Protein Urine Glucose (UA) Urine Ketones Urine Blood Urine Nitrite Ur Leukocyte Esterase Urine RBC Urine WBC Ur Squamous Epith Cells Urine Bacteria Urine Opiates Screen Urine Fentanyl Screen Ur Barbiturates Screen Ur Phencyclidine Scrn Ur Amphetamines Screen U Benzodiazepines Scrn Urine Cocaine Screen U Marijuana (THC) Screen Ethyl Alcohol COVID-19 ([facility]ANDA) COVID-19 Clin Com Imaging Radiology Impressions: ITS Impressions Chest X-Ray 05/27/21 07:30 IMPRESSION: No acute disease. Mental Status Exam Mental Status Exam Narrative: Well-developed, well-nourished male, in NAD. Appears stated age. Resting in bed, ambulation not observed. No evidence of any type of substance withdrawals observed or reported. Patient Appearance: Well Grooomed and Appropriate Patient Orientation: Person, Place, Time and Situation Level of Consciousness: Awake, Appropriate and Alert Patient Behavior: Appropriate, Guarded, Cooperative and Good Eye Contact Mood Description: Appropriate, Depressed and Anxious Affect Description: Appropriate, Constricted and Depressed Patient Cognition Impaired: No Ability to Follow Directions: Good Speech Pattern: Clear, Appropriate, Spontaneous Speech and Coherent Memory Description: Intact Hallucinations: None and Auditory (Reports history of auditory hallucinations, when he was hospitalized in past. Denies any at this time.) Delusions: Not Present Thought Process: Intact, Goal Oriented and Linear Thought Content: positive for Intact, positive for Goal Oriented and positive for Linear Depressive Symptoms: Increased Anxiety, Increased Irritability, Feelings of Worthlessness, Feelings of Guilt, Unhappiness and Low Self Esteem Judgement: Fair Medications Medications Current Medications Dextrose (Dextrose 50 % 25 Gm/50 Ml Syringe) 25 gm IVPUSH Q15M PRN; Protocol PRN Reason: per Hypoglycemia Standing Ord. Glucose (Glucose Gel 15 Gm Gel..Gram.) 15 gm PO Q15M PRN; Protocol PRN Reason: per Hypoglycemia Standing Ord. Insulin Human Lispro (Insulin Lispro 100 Unit/Ml 3 Ml Vial) 0 unit SUBCUT [facility]; Protocol Stop: 05/28/21 08:24 Last Admin: 05/27/21 10:43 Dose: Not Given Documented by: Pharmacy Consult (Consult Rx Perform Med Rec) 1 each MISCELLANE ONCE PRN PRN Reason: Consult order Allergies Allergies Allergy/AdvReac Type Severity Reaction Status Date / Time No Known Allergies Allergy Verified 09/14/20 19:55 Assessment & Plan Assessment & Plan (1) Bipolar 1 disorder: Status: Acute Code(s): F31.9 - Bipolar disorder, unspecified Assessment and Plan: Per chart, patient has a history of bipolar disorder. Patient describes his symptoms as feeling depressed, states that he receives regular care from his psychiatric provider at [facility] in [place]. Also reports that he has a therapist there. He reports that he missed his appointment on April 30. Current prescriptions in med history show mirtazapine 15 mg at bedtime, BuSpar 15 mg b.i.d.. He denies any manic/hypomanic symptoms, and none were observed. (2) Suicidal ideation: Status: Acute Code(s): R45.851 - Suicidal ideations Assessment and Plan: Patient reports that he had made a suicidal gesture in order to get into treatment several days ago at [facility]. He reports that he is not suicidal or homicidal in any way at this time, and that he feels safe. He reports that he missed his appointment with his outpatient provider several weeks ago, and that he needs to contact her office so that he can be seen again. (3) Opioid withdrawal: Status: Acute Code(s): F11.23 - Opioid dependence with withdrawal Assessment and Plan: Patient reports that he had recently relapsed with substances after being sober x1 year. He is requesting a methadone taper, and then would like to resume taking Vivitrol. He reports that Vivitrol was extremely helpful in helping him to maintain sobriety in the past. Plan 1. Start Mirtazapine 15 mg at bedtime. 2. Start buspar 15 mg b.i.d.. 3. Discontinue sitter at this time. 4. Refer to care team when medically cleared. 5. Recovery team will continue to follow patient regarding substance use resources and referrals. 6. Will reassess for withdrawal symptoms tomorrow morning, we will make recommendations regarding any methadone dosing at that time. Thank you for this consultation. If you have any further questions or concerns, please do not hesitate to contact psychiatry service or addiction service. I spent minutes with the patient and/or on the patient floor today, greater than?50% of which was spent counseling/coordinating care. Patient educated on: diagnosis, medication risk/benefits, substance abuse and therapeutic strategies Informed Consent: understands
--- NOTE | 2021-05-27 14:56 | MHC.CM.PN ---
Met with pt in ICU where he as admitted with HTN urgency from [facility]. Pt states he was at [facility] INPT psych after SI d/t breakup with significant other. Pt states he was told he could not return to [facility] but was not able to elaborate. Pt identifies himself as homeless now and has no friends or family that he could stay with. CM offered area care home list however, pt declined. Pt anxious, requesting his personal belongings from [facility] (which were delivered to [facility] by environmental health and safety intern). He states he has to pay on a storage unit or his belongings will be confiscated. Pt states he has access to his diabetic supplies and medical care but declined further inquiries. His PCP is Dr. Griffith, he has been COVID vaccinated and he declined HCP assistance. Pt stating repeatedly that he needs to get into an INPT detox program or a housing program. He declines needing INPT psych, I already did that, I need help with staying clean Interview limited by pt's anxiety. Cell phone is reportedly among his possessions: staff to assist pt with them. CM to follow for any changes in d/c plan. At this time, pt does not have a STR need, is declining a care home list and claims to have no contacts to stay with. Will await CARE team and psych shahriar for assistance with d/c planning.
[2021-05-27 16:18] LABS: Glucose, Whole Blood 126 mg/dL (60-115)
[2021-05-27 20:11] LABS: Glucose, Whole Blood 128 mg/dL (60-115)
--- NOTE | 2021-05-27 21:50 | MHC.RECOVSUP ---
? Reason for consult: Recovery Support o ? ? ?Current location: ?[facility] o ? ? ?Identified substance use concern: ?Cocaine/Heroine - Support ? ?Intervention: o Community resources provided o Harm reduction discussion ? Plan: o Referral to [facility] o Follow up tomorrow ? ? Additional information:?I was able to connect with patient and review his options. Patient stated he wants support with his sobriety and needs a TSS at this point. Patient is homeless and is struggling with personal issues with his . I was able to review harm reduction strategies and suggested community resources. Patient is also looking for the vivitrol shot. I followed up with the Care Team.
[2021-05-28] VITALS: BP 97/65; PULSE 70; RESP 16; TEMP 36.6; O2SAT 99
[2021-05-28 04:00] VITALS: BP 109/75; PULSE 60; RESP 16; TEMP 36.4; O2SAT 97
[2021-05-28 05:50] LABS: Hematocrit 46.5 % (42.0-52.0); Hemoglobin 15.6 g/dl (14.0-18.0); Mean Corpuscular HGB Conc 33.5 g/dl (31.0-36.0); Mean Corpuscular Hemoglobin 30.4 pg (27.0-33.0); Mean Corpuscular Volume 90.5 fL (80.0-98.0); Mean Platelet Volume 10.9 fL (9.4-12.4); Platelet Count 151 X10*3/uL (160-400); Red Blood Count 5.14 X10*6/uL (4.60-5.80); Red Cell Distribution Width 12.2 % (11.0-16.0); White Blood Count 6.7 X10*3/uL (4.8-10.8)
[2021-05-28 06:15] LABS: Anion Gap 14 (12-20); Blood Urea Nitrogen 32 mg/dL (9-16); Calcium 9.3 mg/dL (8.4-10.2); Carbon Dioxide 30 mmol/L (22-29); Chloride 100 mmol/L (96-108); Creatinine Clr Calc Pharmacy 51.4; Estimated Glomerular Filt Rate 47; Glucose Random 123 mg/dL (60-115); Potassium 3.7 mmol/L (3.3-5.1); Sodium 140 mmol/L (135-145)
[2021-05-28 07:34] LABS: Glucose, Whole Blood 110 mg/dL (60-115)
[2021-05-28 07:42] VITALS: BP 134/85; PULSE 65; RESP 18; TEMP 36.2; O2SAT 97
--- NOTE | 2021-05-28 08:49 | MHC.CARE ---
smartsheet completed at 845am - plan for CARE Team to complete assessment if [facility]N no available
[2021-05-28 11:27] LABS: Glucose, Whole Blood 144 mg/dL (60-115)
[2021-05-28 11:49] VITALS: BP 141/92; PULSE 82; RESP 18; TEMP 36.6; O2SAT 99
[2021-05-28] MEDS: amLODIPine Besylate 5 MG TABLET PO (12:28)
--- NOTE | 2021-05-28 12:40 | MHC.RECOVSUP ---
Recovery Support note: Patient referred to [facility] and residential recovery programs. No [facility] beds at this time. Messages left at residential recovery programs. Discussed situation with patient. Patient is agreeable to a retail performance coach referral. A retail performance coach will contact patient directly to coordinate referrals. Patient is interested in discharging to [facility] to continue making calls. Patient is currently waiting for his belongings to be dropped off from [facility]. Lisa at [facility] reports she will come by before 1630 to drop off his belongings. Discussed case with CARE Team and CM.
--- NOTE | 2021-05-28 12:43 | MHC.CARE ---
Pt does not require inpatient psychiatric admission at this time. Pt will be deferred to case management for assistance with placement.
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
--- NOTE | 2021-05-28 13:36 | P.PNADD_ITS ---
Subjective Subjective Date of Service: 05/28/21 Reason For Visit: Hypertensive Urgency Guardianship: No Medical Problems Affecting Mental Status: No Interim History: Mikal reports he has no withdrawal symptoms at this time. He does not want either suboxone or methadone. Has appointment with psych provider MondayMay 31. Requesting assistance for referral to [facility] level of care for criselda. Denies any thought of harm to self or others, no safety concern at this time. Medication Compliance: Yes Side effects from medications: No Review of Systems Acute medical concerns: No Medical Review of Systems: unchanged Review of Systems Review of Systems Yes all other systems are reviewed and are negative Constitutional: Reports no additional constitutional complaints Mental Status Exam Mental Status Exam Narrative: Well-developed, well-nourished male, in NAD. Sitting up in chair by window. Patient Appearance: Well Grooomed and Appropriate Patient Orientation: Person, Place, Time and Situation Level of Consciousness: Awake, Appropriate and Alert Patient Behavior: Appropriate, Cooperative and Good Eye Contact Mood Description: Calm and Appropriate Affect Description: Calm and Appropriate Patient Cognition Impaired: No Ability to Follow Directions: Excellent Speech Pattern: Clear, Appropriate and Coherent Memory Description: Intact Hallucinations: None Delusions: Not Present Thought Process: Intact, Goal Oriented and Linear Thought Content: positive for Intact, positive for Goal Oriented and positive for Linear Judgement: Good Diagnostics Vital Signs (24Hr): Vital Signs - 24 hr 05/27/21 16:00 05/27/21 19:38 05/28/21 00:00 Temperature 98.1 F 97.8 F Pulse Rate 94 82 70 Respiratory Rate 14 18 16 Blood Pressure 123/95 H 116/86 97/65 Pulse Oximetry 99 97 99 05/28/21 04:00 05/28/21 07:42 05/28/21 11:49 Temperature 97.5 F 97.2 F 98 F Pulse Rate 60 65 82 Respiratory Rate 16 18 18 Blood Pressure 109/75 134/85 141/92 H Pulse Oximetry 97 97 99 BMI result Body Mass Index 24.5 Labs Results: 05/28/21 05:35 05/28/21 05:35 Labs: Laboratory Results - last 48 hr 05/27/21 05/27/21 05/27/21 00:22 00:22 00:22 WBC 11.4 H RBC 5.90 H Hgb 17.9 Hct 51.1 MCV 86.6 MCH 30.3 MCHC 35.0 RDW 11.7 Plt Count 178 MPV 10.8 Immature Gran % (Auto) 0.3 Neut % (Auto) 80.5 H Lymph % (Auto) 12.9 L Barren % (Auto) 6.1 Eos % (Auto) 0.1 Baso % (Auto) 0.1 Lymph # (Auto) 1.5 Barren # (Auto) 0.7 Eos # (Auto) 0.0 Baso # (Auto) 0.0 Abs Immat Gran (auto) 0.03 Absolute Neuts (auto) 9.2 H Absolute Nucleated RBC 0.000 Nucleated RBC % (auto) 0.0 Sodium 139 Potassium 3.9 Chloride 95 L Carbon Dioxide 28 Anion Gap 20 BUN 16 Creatinine 1.35 Estim Creat Clear Calc 59.8 Estimated GFR 55 POC Glucose Random Glucose 171 H Calcium 10.6 H D Total Bilirubin 1.0 AST 47 H D ALT 41 H Alkaline Phosphatase 84 Total Creatine Kinase 349 H Troponin I High Sens 191.6 H* Total Protein 9.2 H D Albumin 4.9 D Lipase 9 TSH 0.31 L Free T4 1.04 Urine Color Urine Appearance Urine pH Ur Specific Salmon Urine Protein Urine Glucose (UA) Urine Ketones Urine Blood Urine Nitrite Ur Leukocyte Esterase Urine RBC Urine WBC Ur Squamous Epith Cells Urine Bacteria Urine Opiates Screen Urine Fentanyl Screen Ur Barbiturates Screen Ur Phencyclidine Scrn Ur Amphetamines Screen U Benzodiazepines Scrn Urine Cocaine Screen U Marijuana (THC) Screen Ethyl Alcohol COVID-19 ([facility]) COVID-19 Clin Com 05/27/21 05/27/21 05/27/21 00:22 00:22 01:27 WBC RBC Hgb Hct MCV MCH MCHC RDW Plt Count MPV Immature Gran % (Auto) Neut % (Auto) Lymph % (Auto) Barren % (Auto) Eos % (Auto) Baso % (Auto) Lymph # (Auto) Barren # (Auto) Eos # (Auto) Baso # (Auto) Abs Immat Gran (auto) Absolute Neuts (auto) Absolute Nucleated RBC Nucleated RBC % (auto) Sodium Potassium Chloride Carbon Dioxide Anion Gap BUN Creatinine Estim Creat Clear Calc Estimated GFR POC Glucose Random Glucose Calcium Total Bilirubin AST ALT Alkaline Phosphatase Total Creatine Kinase Troponin I High Sens Total Protein Albumin Lipase TSH Free T4 Urine Color YELLOW Urine Appearance CLEAR Urine pH 6.0 Ur Specific Salmon 1.015 Urine Protein TRACE Urine Glucose (UA) >=1000 H Urine Ketones 15 Urine Blood NEG Urine Nitrite NEG Ur Leukocyte Esterase NEG Urine RBC 1-4 Urine WBC 0-2 Ur Squamous Epith Cells 1+ Urine Bacteria NONE Urine Opiates Screen Urine Fentanyl Screen Ur Barbiturates Screen Ur Phencyclidine Scrn Ur Amphetamines Screen U Benzodiazepines Scrn Urine Cocaine Screen U Marijuana (THC) Screen Ethyl Alcohol < 10 COVID-19 ([facility]DA) Negative COVID-19 Clin Com See Note 05/27/21 05/27/21 05/27/21 01:27 03:35 07:11 WBC RBC Hgb Hct MCV MCH MCHC RDW Plt Count MPV Immature Gran % (Auto) Neut % (Auto) Lymph % (Auto) Barren % (Auto) Eos % (Auto) Baso % (Auto) Lymph # (Auto) Barren # (Auto) Eos # (Auto) Baso # (Auto) Abs Immat Gran (auto) Absolute Neuts (auto) Absolute Nucleated RBC Nucleated RBC % (auto) Sodium 137 Potassium 3.7 Chloride 98 Carbon Dioxide 27 Anion Gap 16 BUN 20 H Creatinine 1.43 H Estim Creat Clear Calc 56.4 Estimated GFR 52 POC Glucose Random Glucose 138 H Calcium 9.8 D Total Bilirubin 0.8 AST 31 ALT 31 Alkaline Phosphatase 67 D Total Creatine Kinase 208 H D Troponin I High Sens 210.5 H* Total Protein 7.5 Albumin 4.0 Lipase TSH Free T4 Urine Color Urine Appearance Urine pH Ur Specific Salmon Urine Protein Urine Glucose (UA) Urine Ketones Urine Blood Urine Nitrite Ur Leukocyte Esterase Urine RBC Urine WBC Ur Squamous Epith Cells Urine Bacteria Urine Opiates Screen Not Detected Urine Fentanyl Screen POSITIVE H Ur Barbiturates Screen Not Detected Ur Phencyclidine Scrn Not Detected Ur Amphetamines Screen Not Detected U Benzodiazepines Scrn POSITIVE H Urine Cocaine Screen POSITIVE H U Marijuana (THC) Screen POSITIVE H Ethyl Alcohol COVID-19 ([facility]) COVID-19 Clin Com 05/27/21 05/27/21 05/27/21 07:11 10:38 16:12 WBC RBC Hgb Hct MCV MCH MCHC RDW Plt Count MPV Immature Gran % (Auto) Neut % (Auto) Lymph % (Auto) Barren % (Auto) Eos % (Auto) Baso % (Auto) Lymph # (Auto) Barren # (Auto) Eos # (Auto) Baso # (Auto) Abs Immat Gran (auto) Absolute Neuts (auto) Absolute Nucleated RBC Nucleated RBC % (auto) Sodium Potassium Chloride Carbon Dioxide Anion Gap BUN Creatinine Estim Creat Clear Calc Estimated GFR POC Glucose 161 H 126 H Random Glucose Calcium Total Bilirubin AST ALT Alkaline Phosphatase Total Creatine Kinase Troponin I High Sens 160.8 H* Total Protein Albumin Lipase TSH Free T4 Urine Color Urine Appearance Urine pH Ur Specific Salmon Urine Protein Urine Glucose (UA) Urine Ketones Urine Blood Urine Nitrite Ur Leukocyte Esterase Urine RBC Urine WBC Ur Squamous Epith Cells Urine Bacteria Urine Opiates Screen Urine Fentanyl Screen Ur Barbiturates Screen Ur Phencyclidine Scrn Ur Amphetamines Screen U Benzodiazepines Scrn Urine Cocaine Screen U Marijuana (THC) Screen Ethyl Alcohol COVID-19 ([facility]DA) [employer] 05/27/21 05/28/21 05/28/21 20:06 05:35 05:35 WBC 6.7 RBC 5.14 Hgb 15.6 Hct 46.5 MCV 90.5 MCH 30.4 MCHC 33.5 RDW 12.2 Plt Count 151 L MPV 10.9 Immature Gran % (Auto) Neut % (Auto) Lymph % (Auto) Barren % (Auto) Eos % (Auto) Baso % (Auto) Lymph # (Auto) Barren # (Auto) Eos # (Auto) Baso # (Auto) Abs Immat Gran (auto) Absolute Neuts (auto) Absolute Nucleated RBC 0.000 Nucleated RBC % (auto) 0.0 Sodium 140 Potassium 3.7 Chloride 100 Carbon Dioxide 30 H Anion Gap 14 BUN 32 H D Creatinine 1.57 H Estim Creat Clear Calc 51.4 Estimated GFR 47 POC Glucose 128 H Random Glucose 123 H Calcium 9.3 Total Bilirubin AST ALT Alkaline Phosphatase Total Creatine Kinase Troponin I High Sens Total Protein Albumin Lipase TSH Free T4 Urine Color Urine Appearance Urine pH Ur Specific Salmon Urine Protein Urine Glucose (UA) Urine Ketones Urine Blood Urine Nitrite Ur Leukocyte Esterase Urine RBC Urine WBC Ur Squamous Epith Cells Urine Bacteria Urine Opiates Screen Urine Fentanyl Screen Ur Barbiturates Screen Ur Phencyclidine Scrn Ur Amphetamines Screen U Benzodiazepines Scrn Urine Cocaine Screen U Marijuana (THC) Screen Ethyl Alcohol COVID-19 ([facility]ANDA) [employer] 05/28/21 05/28/21 06:56 11:23 WBC RBC Hgb Hct MCV MCH MCHC RDW Plt Count MPV Immature Gran % (Auto) Neut % (Auto) Lymph % (Auto) Barren % (Auto) Eos % (Auto) Baso % (Auto) Lymph # (Auto) Barren # (Auto) Eos # (Auto) Baso # (Auto) Abs Immat Gran (auto) Absolute Neuts (auto) Absolute Nucleated RBC Nucleated RBC % (auto) Sodium Potassium Chloride Carbon Dioxide Anion Gap BUN Creatinine Estim Creat Clear Calc Estimated GFR POC Glucose 110 144 H Random Glucose Calcium Total Bilirubin AST ALT Alkaline Phosphatase Total Creatine Kinase Troponin I High Sens Total Protein Albumin Lipase TSH Free T4 Urine Color Urine Appearance Urine pH Ur Specific Salmon Urine Protein Urine Glucose (UA) Urine Ketones Urine Blood Urine Nitrite Ur Leukocyte Esterase Urine RBC Urine WBC Ur Squamous Epith Cells Urine Bacteria Urine Opiates Screen Urine Fentanyl Screen Ur Barbiturates Screen Ur Phencyclidine Scrn Ur Amphetamines Screen U Benzodiazepines Scrn Urine Cocaine Screen U Marijuana (THC) Screen Ethyl Alcohol COVID-19 ([facility]) COVID-19 Clin Com Imaging Radiology Impressions: ITS Impressions Chest X-Ray 05/27/21 07:30 IMPRESSION: No acute disease. Medications Medications Current Medications Amlodipine Besylate (Amlodipine Besylate 5 Mg Tablet) 5 mg PO DAILY [facility]; Protocol Last Admin: 05/28/21 12:28 Dose: 5 mg Documented by: Atorvastatin Calcium (Atorvastatin Calcium 10 Mg Tablet) 10 mg PO BEDTIME ERNESTO Buspirone HCl (Buspirone Hcl 5 Mg Tablet) 15 mg PO BID [facility] Last Admin: 05/28/21 08:32 Dose: Not Given Documented by: Dextrose (Dextrose 50 % 25 Gm/50 Ml Syringe) 25 gm IVPUSH Q15M PRN; Protocol PRN Reason: per Hypoglycemia Standing Ord. Glucose (Glucose Gel 15 Gm Gel..Gram.) 15 gm PO Q15M PRN; Protocol PRN Reason: per Hypoglycemia Standing Ord. Mirtazapine (Mirtazapine 15 Mg Tablet) 15 mg PO BEDTIME [facility] Last Admin: 05/27/21 20:18 Dose: Not Given Documented by: Oxcarbazepine (Oxcarbazepine 300 Mg Tablet) 300 mg PO BID@0900,1700 [facility] Last Admin: 05/28/21 08:33 Dose: Not Given Documented by: Pharmacy Consult (Consult Rx Perform Med Rec) 1 each MISCELLANE ONCE PRN PRN Reason: Consult order Allergies Allergies Allergy/AdvReac Type Severity Reaction Status Date / Time No Known Allergies Allergy Verified 09/14/20 19:55 Assessment & Plan Assessment & Plan (1) Bipolar 1 disorder: Status: Acute Code(s): F31.9 - Bipolar disorder, unspecified Assessment and Plan: Client denies any symptoms of giselle or hypomania, and None were observed. Reports that he has had depression off and on, and that a lot of it currently is situational. He reports that his outpatient provider has been working with him to changes medications. We discussed mirtazapine, he does not like the 15 mg dose as it makes him too groggy in the mornings. I did suggest a lower dose of 7.5 mg. He stated that he would be interested in this. He denies any thought of harm to self or others in any way, and again stated that he only had said that so that he would get taken into treatment quickly. He reports that he feels safe for discharge, and that he plans to follow up on Monday with his appointment with his outpatient provider. Discussed the Trileptal, which he reports was started at [facility]. I did explain that before he starts taking an antidepressant it is important to have a mood stabilizer on board due to his diagnosis of bipolar disorder. He stated at that time that he actually believes his diagnosis is PTSD, and that he has been working with his outpatient providers regarding this. (2) Opioid withdrawal: Status: Acute Code(s): F11.23 - Opioid dependence with withdrawal Assessment and Plan: Patient denies any type of withdrawal from any substances at this time. He reports he is not interested in any type of medication at this time such as Suboxone or methadone. He plans to remain opioid free for 7 days so that he can start Vivitrol injections. He has had these in the past, and was able to maintain sobriety for some time while receiving it. He has asked for referral to [facility] level of care, is awaiting results on search. Plan 1. Recovery team has met with patient and has submitted referral for [facility]. 2. Mirtazapine dose has been changed to 7.5 mg. I spent ___30___ minutes with the patient and/or on the patient floor today, greater than?50% of which was spent counseling/coordinating care. Education Patient educated on: diagnosis, medication risk/benefits, substance abuse and therapeutic strategies Informed Consent: understands
== END 2021-05-28 14:05 | disposition home or self-care (01) | DRG 470 ==
LOC: HO.ED 05-27 00:22 → HO.ICU 05-27 05:28 → HO.S3 05-27 17:41
PROVIDERS: Emergency Medicine; Admitting Provider Internal Medicine Cardiovascular Disease; Emergency Provider Emergency Medicine Emergency Medical Services; Visit Provider Student in an Organized Health Care Education/Training Program
DX: I12.9 Hypertensive chronic kidney disease with stage 1 through stage 4 chronic kidney disease, or unspecified chronic kidney disease (principal); R45.851 Suicidal ideations; E11.22 Type 2 diabetes mellitus with diabetic chronic kidney disease; I16.0 Hypertensive urgency; F11.23 Opioid dependence with withdrawal; F31.9 Bipolar disorder, unspecified; N18.9 Chronic kidney disease, unspecified; F43.10 Post-traumatic stress disorder, unspecified; Z91.14 Patient's other noncompliance with medication regimen; Z20.822 Contact with and (suspected) exposure to COVID-19; Z59.02 Unsheltered homelessness; Z79.84 Long term (current) use of oral hypoglycemic drugs; Z79.899 Other long term (current) drug therapy
CPT/HCPCS: 36415; 71045; 80048; 80053; 80307; 81001; 82077; 82550; 82947; 83690; 84439; 84443; 84484; 85025; 85027; 87635; 93005; 96374; 99283; 99291; J1885

== ENCOUNTER 2021-07-12 13:12 | Emergency (ER) | payer OTHER, SELFPAY ==
--- NOTE | ~2021-07-12 | XR_ITS ---
EXAMINATION: XR CHEST CLINICAL INFORMATION: Chest pressure COMPARISON: Previous chest x-ray May 2021 TECHNIQUE: Frontal view of the chest was obtained. FINDINGS: The cardiac and mediastinal contours are stable. The lungs are clear. There is no pleural effusion or pneumothorax. There are degenerative changes of the spine. XR/XR chest 1V IMPRESSION: No evidence for acute disease in the chest.
--- NOTE | 2021-07-12 13:49 | ECG_ITS ---
Test Reason : CP Blood Pressure : / mmHG Vent. Rate : 107 BPM Atrial Rate : 107 BPM P-R Int : 146 ms QRS Dur : 074 ms QT Int : 308 ms P-R-T Axes : 071 023 026 degrees QTc Int : 411 ms Sinus tachycardia Nonspecific T wave abnormality Abnormal ECG When compared with ECG of 27-MAY-2021 06:43, No significant change was found Referred By: Generic ED Physician Electronically Signed By:Tex [place]
[2021-07-12 13:58] VITALS: BP 138/99; PULSE 106; RESP 16; TEMP 36.2; O2SAT 96; BMI 26.3
[2021-07-12 14:24] LABS: MANUAL DIFF FLAG NO
[2021-07-12 14:29] LABS: Basophils Percent Auto 0.3 % (0-2); Eosinophils Absolute Auto 0.1 X10*3/uL (0.0-0.4); Eosinophils Percent Auto 1.1 % (0-4); Hematocrit 44.3 % (42.0-52.0); Hemoglobin 14.9 g/dl (14.0-18.0); Imm Gran Abs Auto 0.05 X10*3/uL (0.00-0.03); Imm Gran Pct Auto 0.7 % (0.0-0.4); Lymphocytes Absolute Auto 1.5 X10*3/uL (1.2-4.9); Lymphocytes Percent Auto 20.5 % (20-40); Mean Corpuscular HGB Conc 33.6 g/dl (31.0-36.0); Mean Corpuscular Hemoglobin 30.6 pg (27.0-33.0); Mean Platelet Volume 10.7 fL (9.4-12.4); Monocytes Absolute Auto 0.8 X10*3/uL (0.1-1.2); Monocytes Percent Auto 11.6 % (2-11); Neutrophils Absolute Auto 4.8 x10*3/uL (2.0-8.3); Neutrophils Percent Auto 65.8 % (45-73); Platelet Count 142 X10*3/uL (160-400); Red Blood Count 4.87 X10*6/uL (4.60-5.80); Red Cell Distribution Width 13.2 % (11.0-16.0); White Blood Count 7.3 X10*3/uL (4.8-10.8)
[2021-07-12 14:42] LABS: Anion Gap 13 (12-20); Blood Urea Nitrogen 24 mg/dL (9-16); Calcium 9.7 mg/dL (8.4-10.2); Carbon Dioxide 29 mmol/L (22-29); Chloride 103 mmol/L (96-108); Creatinine Clr Calc Pharmacy 60.7; Estimated Glomerular Filt Rate 56; Glucose Random 305 mg/dL (60-115); Potassium 4.5 mmol/L (3.3-5.1); Sodium 140 mmol/L (135-145)
[2021-07-12 14:47] LABS: COVID-19 Test Negative (Negative); IDNOW Serial# 16C4AD1C
[2021-07-12 14:50] LABS: Troponin-I High Sensitivity 4.8 ng/L (<3.5-35.0)
[2021-07-12 16:31] VITALS: BP 166/99; PULSE 95; O2SAT 98
[2021-07-12 16:32] VITALS: BP 158/94; PULSE 94; O2SAT 99
--- NOTE | 2021-07-12 17:08 | ED.GENADULT ---
HPI - General Adult General Chief complaint: General Medical Stated complaint: chest pain high bp Time Seen by Provider: 07/12/21 16:49 Source: patient Mode of arrival: ambulatory Limitations: no limitations History of Present Illness HPI narrative: Patient comes to the emergency room complaining of diffuse body aches for about 2 weeks. Also complaining of high blood pressure. Patient states he usually wakes up with blood pressures in the 160s systolic. Patient is already taking 40 mg of lisinopril and 10 mg of amlodipine patient states that sometimes he has headache when his blood pressure is elevated. Patient is compliant with his medications. Related Data Home Medications Medication Instructions Recorded Confirmed Lactobacillus acidophilus 1 tab PO DAILY 05/27/21 05/27/21 atorvastatin 10 mg tablet 10 mg PO BEDTIME 05/27/21 05/27/21 dulaglutide 1.5 mg/0.5 mL 1.5 mg SUBCUT QWEEK 05/27/21 05/27/21 subcutaneous pen injector (Trulicity) empagliflozin 10 mg tablet 10 mg PO DAILY 05/27/21 05/27/21 (Jardiance) metformin 1,000 mg tablet 1,000 mg PO BID@0900,1700 05/27/21 05/27/21 mirtazapine 15 mg tablet 15 mg PO BEDTIME 05/27/21 05/27/21 oxcarbazepine 300 mg tablet 300 mg PO BID@0900,1700 05/27/21 05/27/21 Previous Rx's Medication Instructions Recorded amlodipine 5 mg tablet 5 mg PO DAILY #30 tab 05/28/21 hydrochlorothiazide 25 mg tablet 25 mg PO DAILY #30 tab 07/12/21 Allergies Allergy/AdvReac Type Severity Reaction Status Date / Time No Known Allergies Allergy Verified 06/23/21 14:20 Review of Systems Review of Systems: Constitutional : No Weight loss, No Fever, No Chills, No Night Sweats, ENT/Mouth : No Hearing loss, No Ear Pain, No Nasal Congestion, No Sinus Pain, No Hoarseness, No sore throat, No Rhinorrhea, No Swallowing Difficulty Eyes: No Eye Pain, No Swelling, No Redness, No Foreign Body, No Discharge, No Vision Changes Cardiovascular : No Chest Pain, No SOB, No Dyspnea on Exertion, No Orthopnea, No Edema, No Palpitations Respiratory : No Cough, No Sputum, No Wheezing, No Smoke Exposure, No Dyspnea Gastrointestinal : No Nausea, No Vomiting, No Diarrhea, No Constipation, No abdominal Pain, No Hematochezia, No Melena Genitourinary : no irregular bleeding, No Dysuria, No Urinary Frequency, No Hematuria, No Urinary Incontinence, No Urgency, No Flank Pain, No Urinary Flow Changes, No Hesitancy Musculoskeletal : No joint pain, No Myalgias, No Joint Swelling Skin : No Skin Lesions, No rash Neuro : No Weakness, No Numbness, No Paresthesias, No Loss of Consciousness, No Dizziness, No Headache Psych : No Anxiety/Panic, No Depression, No SI/HI/AH/VH, No Social Issues, Heme/Lymph: No Bruising, No Bleeding,No Lymphadenopathy Endocrine : No Polyuria, No Polydipsia, No Temperature Intolerance [facility] Past Medical History Medical History (Updated 07/12/21 @ 17:15 by Seema Blank MD) Bipolar 1 disorder CKD (chronic kidney disease) DM2 (diabetes mellitus, type 2) HLD (hyperlipidemia) Hypertension Social History Social History (System 06/23/21 @ 14:20 by Elvi Burris) Household Members: None Housing: Other Housing Other:: states homeless Do you presently have visiting nurse or other home services: No Unable to assess alcohol history related to: Unknown Alcohol intake: never Patient Tobacco Use Status: Tobacco use Unknown Substance Use Type: Heroin and Marijuana Advance Directives: No Advance Directives Information Provided: Yes service: No Current occupational status: unemployed Physical Exam ED Vital Signs: Vital Signs - 24 hr 07/12/21 13:58 07/12/21 16:31 07/12/21 16:32 Temperature 97.1 F Pulse Rate 106 H 95 94 Respiratory Rate 16 Blood Pressure 138/99 H 166/99 H 158/94 H Pulse Oximetry 96 98 99 BMI result Body Mass Index 26.3 Course Course Course Narrative: The labs and imaging with the patient, troponin negative, EKG shows no acute pathology. We will start patient on hydrochlorothiazide. Patient instructed to follow-up with his primary care physician, states he has an appointment in 8 days Medical Decision Making Lab Data Result diagrams: 07/12/21 14:17 07/12/21 14:17 Labs: Lab Results 07/12/21 07/12/21 07/12/21 Range/Units 14:17 14:17 14:17 WBC 7.3 (4.8-10.8) X10*3/uL RBC 4.87 (4.60-5.80) X10*6/uL Hgb 14.9 (14.0-18.0) g/dl Hct 44.3 (42.0-52.0) % MCV 91.0 (80.0-98.0) fL MCH 30.6 (27.0-33.0) pg MCHC 33.6 (31.0-36.0) g/dl RDW 13.2 (11.0-16.0) % Plt Count 142 L (160-400) X10*3/uL MPV 10.7 (9.4-12.4) fL Immature Gran % (Auto) 0.7 H (0.0-0.4) % Neut % (Auto) 65.8 (45-73) % Lymph % (Auto) 20.5 (20-40) % [place] % (Auto) 11.6 H (2-11) % Eos % (Auto) 1.1 (0-4) % Baso % (Auto) 0.3 (0-2) % Lymph # (Auto) 1.5 (1.2-4.9) X10*3/uL [place] # (Auto) 0.8 (0.1-1.2) X10*3/uL Eos # (Auto) 0.1 (0.0-0.4) X10*3/uL Baso # (Auto) 0.0 (0.0-0.2) X10*3/uL Abs Immat Gran (auto) 0.05 H (0.00-0.03) X10*3/uL Absolute Neuts (auto) 4.8 (2.0-8.3) x10*3/uL Absolute Nucleated RBC 0.000 (0.0-0.012) X10*3/uL Nucleated RBC % (auto) 0.0 (0.0-0.2) /100WBC Sodium 140 (135-145) mmol/L Potassium 4.5 D (3.3-5.1) mmol/L Chloride 103 (96-108) mmol/L Carbon Dioxide 29 (22-29) mmol/L Anion Gap 13 (12-20) BUN 24 H (9-16) mg/dL Creatinine 1.33 (0.5-1.4) mg/dL Estim Creat Clear Calc 60.7 Estimated GFR 56 Random Glucose 305 H D (60-115) mg/dL Calcium 9.7 (8.4-10.2) mg/dL Troponin I High Sens 4.8 D (<3.5-35.0) ng/L COVID-19 ([facility]) (Negative) COVID-19 Clin Com 07/12/21 Range/Units 14:17 WBC (4.8-10.8) X10*3/uL RBC (4.60-5.80) X10*6/uL Hgb (14.0-18.0) g/dl Hct (42.0-52.0) % MCV (80.0-98.0) fL MCH (27.0-33.0) pg MCHC (31.0-36.0) g/dl RDW (11.0-16.0) % Plt Count (160-400) X10*3/uL MPV (9.4-12.4) fL Immature Gran % (Auto) (0.0-0.4) % Neut % (Auto) (45-73) % Lymph % (Auto) (20-40) % [place] % (Auto) (2-11) % Eos % (Auto) (0-4) % Baso % (Auto) (0-2) % Lymph # (Auto) (1.2-4.9) X10*3/uL [place] # (Auto) (0.1-1.2) X10*3/uL Eos # (Auto) (0.0-0.4) X10*3/uL Baso # (Auto) (0.0-0.2) X10*3/uL Abs Immat Gran (auto) (0.00-0.03) X10*3/uL Absolute Neuts (auto) (2.0-8.3) x10*3/uL Absolute Nucleated RBC (0.0-0.012) X10*3/uL Nucleated RBC % (auto) (0.0-0.2) /100WBC Sodium (135-145) mmol/L Potassium (3.3-5.1) mmol/L Chloride (96-108) mmol/L Carbon Dioxide (22-29) mmol/L Anion Gap (12-20) BUN (9-16) mg/dL Creatinine (0.5-1.4) mg/dL Estim Creat Clear Calc Estimated GFR Random Glucose (60-115) mg/dL Calcium (8.4-10.2) mg/dL Troponin I High Sens (<3.5-35.0) ng/L COVID-19 ([facility]) Negative (Negative) COVID-19 Clin Com See Note ECG Data Attestation: I personally reviewed and interpreted this ECG as follows: (Heart rate 107, no ST segment depression or elevation, to vision, QTC 411) Discharge Plan Discharge Clinical Impression: Hypertension, Acute viral syndrome Patient Disposition: Home, Self-Care Instructions: Viral Syndrome (ED), Hypertension (ED) Additional Instructions: Please follow-up with your primary care physician tomorrow. If you have any worsening or new symptoms, please return to the emergency room or call 911 Prescriptions: New hydrochlorothiazide 25 mg tablet 25 mg PO DAILY Qty: 30 0RF No Action atorvastatin 10 mg Tablet 10 mg PO BEDTIME 0RF oxcarbazepine 300 mg Tablet 300 mg PO BID@0900,1700 0RF metformin 1,000 mg Tablet 1,000 mg PO BID@0900,1700 0RF mirtazapine 15 mg Tablet 15 mg PO BEDTIME 0RF Jardiance 10 mg Tablet 10 mg PO DAILY 0RF Lactobacillus acidophilus 1 tab PO DAILY 0RF Trulicity 1.5 mg/0.5 mL pen injector 1.5 mg subcut QWEEK 0RF amlodipine 5 mg tablet 5 mg PO DAILY Qty: 30 0RF
== END 2021-07-12 17:38 | disposition home or self-care (01) ==
PROVIDERS: Emergency Provider Emergency Medicine; PCP Registered Nurse
DX: B34.9 Viral infection, unspecified (principal); Z20.822 Contact with and (suspected) exposure to COVID-19; E11.22 Type 2 diabetes mellitus with diabetic chronic kidney disease; I12.9 Hypertensive chronic kidney disease with stage 1 through stage 4 chronic kidney disease, or unspecified chronic kidney disease; N18.9 Chronic kidney disease, unspecified; E78.5 Hyperlipidemia, unspecified; F12.90 Cannabis use, unspecified, uncomplicated; Z79.899 Other long term (current) drug therapy; Z79.02 Long term (current) use of antithrombotics/antiplatelets
CPT/HCPCS: 36415; 71045; 80048; 84484; 85025; 87635; 93005; 99283; 99284